=== PATIENT | female | born 1950 | race Caucasian/White ===

== ENCOUNTER 2019-06-19 23:24 | Inpatient (IN) | payer MEDICARE, MEDICAID, SELFPAY ==
[2019-06-19 23:21] VITALS: BP 156/112; PULSE 97; RESP 27; TEMP 36.7; O2SAT 99; BMI 31.9
--- NOTE | 2019-06-19 23:21 | ECG_ITS ---
Measurements Intervals [place] Rate: 99 P: 73 MO: 141 QRS: 57 QRSD: 90 T: 10 QT: 333 QTc: [address] DEPRESSION [0.05+ mV ST DEPRESSION] Compared to ECG 11/01/2018 11:11:24 No significant changes Electronically Signed On 06-20-2019 9:04:35 CDT by Tor Vigil M.D. [id number]
--- NOTE | 2019-06-19 23:21 | XRR_ITS ---
PROCEDURE INFORMATION: Exam: XR Chest, 1 View Exam date and time: 06/19/2019 11:22 PM Age: 68 years old Clinical indication: Shortness of breath; Additional info: SOB TECHNIQUE: Imaging protocol: XR of the chest Views: 1 view. COMPARISON: CR Chest 1 [place] [id number] 11/01/2018 11:40 AM FINDINGS: Lungs: Stable coarsening of interstitial markings. No pulmonary parenchymal consolidation. Pleural space: Unremarkable. No pleural effusion. No pneumothorax. Heart/Mediastinum: Hiatal hernia is suggested. Heart is borderline prominent and stable. Bones/joints: Unremarkable. XR/XR chest 1V portable [id number] IMPRESSION: No acute change
--- NOTE | 2019-06-19 23:27 | ED_ITS ---
Entered by Meche Francis, acting as scribe for HPI - SOB/Dyspnea General: Chief Complaint: Shortness of Breath/Dyspnea Stated Complaint: SOB Time Seen by Provider: 06/19/19 23:28 Source: patient and EMS Mode of arrival: EMS Limitations: no limitations History of Present Illness: HPI Narrative: 68 yo f came to the er [facility] for shortness of breath. 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 Ems stated that pt is normally on o2 at home but pt was on 5 ltrs with her o2 being at 60%. Ems gave pt [address] to the hospital. 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) Timing: constant Severity: moderate Relieving factors: oxygen Associated symptoms: Deny abdominal pain, chest pain, fever(s), nausea or vomiting Treatment prior to arrival: oxygen and other (cpap and 40 of lasiks) Related Data: Home oxygen amount: 3 liters Review of Systems General: Reports: other (negative unless marked) Const: Denies: fever, chills, body aches or change in appetite Eyes: Denies: blurry vision or eye discomfort ENMT: Denies: throat pain or dental pain Card: Denies: chest pain Resp: Reports: shortness of breath GI: Denies: abdominal pain, nausea, vomiting or diarrhea : Denies: painful urination Musc: Denies: neck pain or back pain Skin/Breast: Denies: rash Neuro: Denies: headache Psych: Denies: depression David/Lymph: Denies: easy bruising All/Imm: Denies: hives PFS ED PFSH: Social History Smoking and tobacco status: former smoker Physical Exam Const: COMMON NORMALS: oriented x3 GENERAL APPEARANCE: in distress and ill appearing HENMT: COMMON NORMALS: normocephalic and head/scalp atraumatic HEAD & SCALP: normocephalic and atraumatic Eye: COMMON NORMALS: PERRL and EOMs intact bilaterally PUPIL: Yes PERRL Neck/C-Spine: COMMON NORMALS: full ROM and supple Chest: COMMONS NORMALS: inspection of chest normal and palpation of chest no rmal Resp: COMMON NORMALS: no retractions EFFORT & INSPECTION: Yes tachypneic, Yes respiratory distress and Yes labored AUSCULTATION: wheezes Cardio: COMMON NORMALS: regular rate, regular rhythm and no murmurs RATE: regular rate RHYTHM: regular rhythm GI: COMMON NORMALS: normal to inspection, nondistended, normoactive bowel sounds, soft to palpation, non-tender and no masses PALPATION: Yes soft Extremity: COMMON NORMALS: normal to inspection and full ROM Neuro: COMMON NORMALS: oriented x3, moves all extremities and no focal motor deficits Psych: COMMON NORMALS: mental status grossly normal, thought process normal and cooperative THOUGHT PROCESS: normal thought process Skin: COMMON NORMALS: no rashes or lesions noted and no wounds GENERAL SKIN EXAM: no rashes or lesions noted Course Vital Signs: Vital signs: Vital Signs Temperature 98.1 F 06/19/19 23:21 Pulse Rate 100 06/19/19 23:44 Respiratory Rate 24 H 06/19/19 23:33 Blood Pressure 156/112 06/19/19 23:33 Pulse Oximetry 98 06/19/19 23:33 MDM - SOB/Dyspnea MDM Narrative: Medical decision making narrative: Patient presents here with dyspnea is likely CHF exacerbation. Patient was in quite a bit distressed when she first arrived but is now much improved on BiPAP. She is tolerating BiPAP well. She has no signs of pneumonia. Patient given breathing treatments as well. I spoke to hospitalist will admit to the cardiac stepdown. Patient has no signs of cardiac cause or pulmonary embolism. Lab Data: Labs: Lab Results 06/19/19 06/19/19 06/19/19 Range/Units 23:30 23:30 23:30 WBC 11.3 H (4.0-10.0) 10^3/ uL RBC 3.50 L (4.1-5.3) 10^6/u L Hgb 10.8 L (11.5-15.3) g/dL Hct 34.2 L (37.0-47.0) % MCV 97.7 (81-99) fL MCH 30.9 (28.0-34.0) pg MCHC 31.6 (30.0-36.0) g/dL RDW 14.6 (12.1-15.1) % Plt Count 356 (130-400) 10^3/c mm MPV 9.5 (7.4-10.4) fL Neut % (Auto) 85.7 % Lymph % (Auto) 10.2 % Rooks % (Auto) 3.3 % Eos % (Auto) 0.0 % Baso % (Auto) 0.1 % Neut # (Auto) 9.7 H (1.8-7.7) 10^3/u L Lymph # (Auto) 1.2 (0.8-4.8) 10^3/u L Rooks # (Auto) 0.4 (0.2-0.9) 10^3/u L Eos # (Auto) 0.0 (0.0-0.8) 10^3/u L Baso # (Auto) 0.0 (0.0-0.1) 10^3/u L Nucleated RBC % (a uto) 0 % Nucleated RBCs # 0.0 /100WBC Specimen Type Sample Site ABG pH (7.35-7.45) ABG pCO2 (35-45) mmHg ABG pO2 (80.0-100.0) mmH g ABG HCO3 (22-26) mmol/L ABG Base Excess (-2.0-2.0) mmol/ L Sergo Test Hematocrit (37-47) % Hgb O2 Saturation (95-100) % Carboxyhemoglobin (0.4-20.1) %THgb Methemoglobin (0.4-1.5) % Total Hemoglobin (12-16) g/dL O2 Delivery Device FiO2 % Fighting Vehicle Systems Maintainer ID Sodium 142 (136-145) mmol/L Potassium 4.4 (3.5-5.1) mmol/L Chloride 101 (98-107) mmol/L Carbon Dioxide 28 (22-29) mmol/L Anion Gap 17.4 (5-19) BUN 17 (8-23) mg/dL Creatinine 1.0 H (0.5-0.9) mg/dL GFR Calculation 54.8 L (90-130) mL/min Glucose 132 H (65-115) mg/dL Calculated Osmolal ity 292 (285-295) mOsm/k g Calcium 10.1 (8.5-10.5) mg/dL Total Bilirubin 0.2 (0.15-1.2) mg/dL AST 58 H (0-32) U/L ALT 38 H (0-33) U/L Alkaline Phosphata se 77 (35-105) IU/L Troponin T Baselin e (0-10) ng/mL NT-Pro-B Natriuret Pep 1697 H (0-125) pg/mL Total Protein 7.8 (6.6-8.7) g/dL Albumin 4.5 (3.5-5.2) g/dL Globulin 3.3 (1.3-4.6) g/dL Influenza Type A A g Negative (Negative) POC Influenza B Ag Negative (Negative) 06/19/19 06/19/19 Range/Units 23:30 23:41 WBC (4.0-10.0) 10^3/ uL RBC (4.1-5.3) 10^6/u L Hgb (11.5-15.3) g/dL Hct (37.0-47.0) % MCV (81-99) fL MCH (28.0-34.0) pg MCHC (30.0-36.0) g/dL RDW (12.1-15.1) % Plt Count (130-400) 10^3/c mm MPV (7.4-10.4) fL Neut % (Auto) % Lymph % (Auto) % Rooks % (Auto) % Eos % (Auto) % Baso % (Auto) % Neut # (Auto) (1.8-7.7) 10^3/u L Lymph # (Auto) (0.8-4.8) 10^3/u L Rooks # (Auto) (0.2-0.9) 10^3/u L Eos # (Auto) (0.0-0.8) 10^3/u L Baso # (Auto) (0.0-0.1) 10^3/u L Nucleated RBC % (a uto) % Nucleated RBCs # /100WBC Specimen Type Arterial Sample Site Radial, right ABG pH 7.42 (7.35-7.45) ABG pCO2 41.2 (35-45) mmHg ABG pO2 118.0 H (80.0-100.0) mmH g ABG HCO3 26.8 H (22-26) mmol/L ABG Base Excess 2.1 H (-2.0-2.0) mmol/ L Sergo Test Pos Hematocrit 34.8 L (37-47) % Hgb O2 Saturation 98.5 (95-100) % Carboxyhemoglobin 0.4 (0.4-20.1) %THgb Methemoglobin 0.0 L (0.4-1.5) % Total Hemoglobin 11.3 L (12-16) g/dL O2 Delivery Device Bipap FiO2 35.0 % Fighting Vehicle Systems Maintainer ID [email or web address] Sodium (136-145) mmol/L Potassium (3.5-5.1) mmol/L Chloride (98-107) mmol/L Carbon Dioxide (22-29) mmol/L Anion Gap (5-19) BUN (8-23) mg/dL Creatinine (0.5-0.9) mg/dL GFR Calculation (90-130) mL/min Glucose (65-115) mg/dL Calculated Osmolal ity (285-295) mOsm/k g Calcium (8.5-10.5) mg/dL Total Bilirubin (0.15-1.2) mg/dL AST (0-32) U/L ALT (0-33) U/L Alkaline Phosphata se (35-105) IU/L Troponin T Baselin e 17 H (0-10) ng/mL NT-Pro-B Natriuret Pep (0-125) pg/mL Total Protein (6.6-8.7) g/dL Albumin (3.5-5.2) g/dL Globulin (1.3-4.6) g/dL Influenza Type A A g (Negative) POC Influenza B Ag (Negative) Imaging Data^: CXR: Radiologist's impression: [address] [address] XRay Report Signed Patient: Jose Amaya Unit #: [id number] : 1950 Age/Sex: 68 / F ADM Date: 06/19/19 Loc: ER Room/Bed: Attending Dr: Ordering Provider/Ordering MD: Srinath Alaniz MD Date of Service: 06/19/19 Procedure(s): XR chest 1V portable [id number] Accession Number(s): [id number] Report Number: [id number] PROCEDURE INFORMATION: Exam: XR Chest, 1 View Exam date and time: 06/19/2019 11:22 PM Age: 68 years old Clinical indication: Shortness of breath; Additional info: SOB TECHNIQUE: Imaging protocol: XR of the chest Views: 1 view. COMPARISON: CR Chest 1 [place] [id number] 11/01/2018 11:40 AM FINDINGS: Lungs: Stable coarsening of interstitial markings. No pulmonary parenchymal consolidation. Pleural space: Unremarkable. No pleural effusion. No pneumothorax. Heart/Mediastinum: Hiatal hernia is suggested. Heart is borderline prominent and stable. Bones/joints: Unremarkable. XR/XR chest 1V portable [id number] IMPRESSION: No acute change EKG Data^: EKG 1: Attestation: I personally reviewed and interpreted this EKG as follows: EKG Interpretation Date: 06/20/19 EKG interpretation time: 23:47 Interpretation: nsr hr [address] or t wave abnormalities qrs 90 qtc 389 Discharge Plan Discharge Patient Disposition: Admitted As Inpatient Clinical Impression: Acute exacerbation of chronic obstructive airways disease Congestive heart failure Qualifiers: Heart failure type: unspecified Heart failure chronicity: acute on chronic Qualified Code(s): I50.9 - Heart failure, unspecified Condition: Stable Referrals: Harriet Driver NP [Family Provider] - Coding Level of Care Code ED Leaflet Or Newspaper Deliverer for Chg Fwd Exam Comprehensive The documentation recorded by the Tito kerns Stephanie Lyn, accurately reflects the service I personally performed and the decisions made by Katty oates Korby, MD Jun 19, 2019 23:24
[2019-06-19 23:28] VITALS: PULSE 89; RESP 26; O2SAT 98
[2019-06-19] MEDS: ipratropium-albuterol 3 mL Neb INHALATION (23:30)
[2019-06-19 23:32] VITALS: PULSE 99; RESP 24; O2SAT 98
[2019-06-19 23:33] VITALS: BP 156/112; PULSE 99; RESP 24; O2SAT 98
[2019-06-19 23:41] LABS: Basophils % 0.1 %; Hematocrit 34.2 % (37.0-47.0); Hemoglobin 10.8 g/dL (11.5-15.3); Lymphocytes # 1.2 10^3/uL (0.8-4.8); Lymphocytes % 10.2 %; Mean Corpuscular HGB Conc 31.6 g/dL (30.0-36.0); Mean Corpuscular Hemoglobin 30.9 pg (28.0-34.0); Mean Corpuscular Volume 97.7 fL (81-99); Mean Platelet Volume 9.5 fL (7.4-10.4); Monocytes # 0.4 10^3/uL (0.2-0.9); Monocytes % 3.3 %; Neutrophils # 9.7 10^3/uL (1.8-7.7); Neutrophils % 85.7 %; Nucleated Red Blood Cells % 0 %; Platelet Count 356 10^3/cmm (130-400); Red Cell Distribution Width 14.6 % (12.1-15.1); White Blood Count 11.3 10^3/uL (4.0-10.0)
[2019-06-19 23:42] LABS: ABG PCO2 41.2 mmHg (35-45); ABG PH Result 7.42 (7.35-7.45); Arterial Blood Gas Hematocrit 34.8 % (37-47); Base Excess ABG 2.1 mmol/L (-2.0-2.0); Blood Gas Allen Test Pos; Blood Gas Sample Site Radial, right; Blood Gas Sample Type Arterial; Carboxyhemoglobin 0.4 %THgb (0.4-20.1); HCO3 ABG 26.8 mmol/L (22-26); HGB O2 Sat 98.5 % (95-100); Oxygen Device BIPAP; Total Hemoglobin 11.3 g/dL (12-16)
[2019-06-19 23:44] VITALS: PULSE 100
[2019-06-20] VITALS (13 sets, daily range): BP systolic 111–154; BP diastolic 63–93; PULSE 81–112; RESP 16–27; TEMP 36.7–36.9; O2SAT 94–99
[2019-06-20 00:03] LABS: Influenza A by IFA Negative (Negative); Influenza B by IFA Negative (Negative)
[2019-06-20 00:07] LABS: Alanine Aminotransferase 38 U/L (0-33); Albumin Level 4.5 g/dL (3.5-5.2); Alkaline Phosphatase 77 IU/L (35-105); Anion Gap 17.4 (5-19); Aspartate Amino Transferase 58 U/L (0-32); Blood Urea Nitrogen 17 mg/dL (8-23); Calcium 10.1 mg/dL (8.5-10.5); Carbon Dioxide 28 mmol/L (22-29); Chloride 101 mmol/L (98-107); Globulin 3.3 g/dL (1.3-4.6); Glomerular Filtration Rate 54.8 mL/min (90-130); Glucose 132 mg/dL (65-115); NT Pro B Type Natriuretic Pept 1697 pg/mL (0-125); Osmolality Calculated 292 mOsm/kg (285-295); Potassium 4.4 mmol/L (3.5-5.1); Sodium 142 mmol/L (136-145); Total Bilirubin 0.2 mg/dL (0.15-1.2); Total Protein 7.8 g/dL (6.6-8.7)
[2019-06-20 00:34] LABS: Troponin(5th) Baseline 17 ng/mL (0-10)
[2019-06-20] MEDS: FUROsemide 10 mg/mL SDV 4mL 40 MG IVP ×3 (00:36→19:59)
[2019-06-20] MEDS: cefTRIAXone 1,000 MG in sodium chloride 0.9% (plus) 50 ML 100 MG IV (00:40)
--- NOTE | 2019-06-20 00:50 | CTR_ITS ---
PROCEDURE INFORMATION: Exam: CT Angiography Chest With Contrast Exam date and time: 06/20/2019 12:59 AM Age: 68 years old Clinical indication: Shortness of breath; Additional info: Hypoxic and tachycardic TECHNIQUE: Imaging protocol: Computed tomographic angiography of the chest with intravenous contrast. 3D rendering: MIP and/or 3D reconstructed images were created by the technologist. Total DLP: 624.31 mGy-cm Radiation optimization: All CT scans at this facility use at least one of these dose optimization techniques: automated exposure control; mA and/or kV adjustment per patient size (includes targeted exams where dose is matched to clinical indication); or iterative reconstruction. Contrast material: VISI; Contrast volume: 95 ml; Contrast route: 20G; COMPARISON: CTA Chest-Pulmonary Emb [id number] 12/24/2016 11:42 AM FINDINGS: Pulmonary arteries: Normal. No pulmonary emboli. Aorta: Aortic calcifications. No acute aortic findings. Lungs: Relatively advanced emphysema noted. Pleural space: Unremarkable. No pneumothorax. No pleural effusion. Heart: Coronary calcifications. Mediastinum: Hiatal hernia unchanged. Lobulated soft tissue mass at upper left pulmonary hilum measuring 3.2 cm superior inferior by approximately 2.3 cm transverse by 3.1 cm AP likely represents bronchogenic carcinoma. Finding appears centered in the upper lobe but crosses the oblique fissure to involve the anterior aspect of superior segment left lower lobe. Finding compresses bronchi to left upper lobe and partially encases left main pulmonary artery. Calcified pulmonary granulomatous changes are also noted. Lymph nodes: Unremarkable. No enlarged lymph nodes. Bones/joints: Multilevel spinal compression deformities. Subtle anterior rib fracture deformities possibly acute especially at anterior 5th rib with possible additional findings at anterior 6th and 4th ribs. Soft tissues: Unremarkable. 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 Advanced emphysema. No findings of pulmonary embolus. Nondisplaced rib fractures that may be acute anteriorly on the right. Additional details as above. Radiation Dose CTDIVOL = (mGy): DLP = 624.31 (mGy-cm)
[2019-06-20] MEDS: azithromycin 500 MG in sodium chloride 0.9% 250 ML 250 MG IV (01:18)
[2019-06-20 01:35] LABS: Troponin 5 2HR 17.01 ng/mL (0-10); Troponin 5 2HR Delta 0.01 ABS# (0-10)
--- NOTE | 2019-06-20 01:36 | USCV_ITS ---
Jose Amaya Age: 68 Gender: F : 1950 Exam Date: 06/20/2019 06:23 Ordering Phys: Kan Rubi MD Technologist: Donato Morgan Exam Location: [facility] [place] Indication: CHF BP: 0 / 93 HR: 93 Rhythm: Other Technical Quality: Technically difficult study MEASUREMENTS (Male / Female) Normal Values 2D ECHO LV Diastolic Diameter PLAX 4.3 cm 4.2 - 5.9 / 3.9 - 5.3 cm LV Systolic Diameter PLAX 2.6 cm IVS Diastolic Thickness 0.9 cm 0.6 - 1.0 / 0.6 - 0.9 cm IVS Systolic Thickness 0.9 cm LVPW Diastolic Thickness 1.0 cm 0.6 - 1.0 / 0.6 - 0.9 cm LVPW Systolic Thickness 1.1 cm LVOT Diameter 2.1 cm LV Ejection Fraction 2D Teich 69.4 % LV Ejection Fraction MOD 2C 70.7 % LV Ejection Fraction 2C AL 70.6 % LA Diameter 4.6 cm LA Width 3.8 cm LA Height 5.3 cm RA Width 3.0 cm RA Height 4.5 cm Aorta at Sinotubular Diameter 2.8 cm M-MODE LV Diastolic Diameter MM 5.6 cm 4.2 - 5.9 / 3.9 - 5.3 cm LV Systolic Diameter MM 4.0 cm LV Ejection Fraction MM Teich 53.4 % IVS Diastolic Thickness MM 0.9 cm 0.6 - 1.0 / 0.6 - 0.9 cm IVS Systolic Thickness MM 1.3 cm LVPW Diastolic Thickness MM 1.1 cm 0.6 - 1.0 / 0.6 - 0.9 cm LVPW Systolic Thickness MM 1.5 cm RV Diastolic Diameter MM 1.8 cm Aortic Annulus Diameter 2.8 cm LA Ao Ratio MM 1.7 MV E Point Septal Separation 1.2 cm DOPPLER AV Peak Velocity 146.0 cm/s LVOT Peak Velocity 118.0 cm/s AV Area Cont Eq vti 2.9 cm squared AV Area Cont Eq pk 2.7 cm squared MV Area PHT 5.0 cm squared Mitral E to A Ratio 1.1 MV E' Velocity 9.0 cm/s Mitral E to MV E' Ratio 12.7 Mitral E to LV E' Lateral Ratio 11.8 Mitral E to LV E' Septal Ratio 13.8 TR Peak Velocity 184.0 cm/s TR Peak Gradient 13.6 mmHg TV Peak E Velocity 79.0 cm/s Right Atrial Pressure 3.0 mmHg Pulmonary Artery Systolic Pressu 16.5 mmHg FINDINGS Left Ventricle The rhythm is irregular with tachycardia so the sensitivity is reduced. This is a poor quality study. The ventricle is probably normal in size and function though only limited views are available. The ejection fraction is likely within normal limits. Unable to assess wall motion disturbances or diastolic function. Right Ventricle Right ventricle not well visualized. Normal right ventricular size and systolic function. Normal right ventricular systolic pressure. Right Atrium The right atrium is normal in size. Left Atrium Mildly increased left atrial size. Mitral Valve Mitral valve not well visualized. Trace mitral valve regurgitation. Aortic Valve Aortic valve not well visualized. No aortic valve stenosis. Tricuspid Valve Tricuspid valve not well visualized. Pulmonic Valve Pulmonic valve not well visualized. Pericardium Normal pericardium without effusion. Aorta Normal ascending aorta dimension. CONCLUSIONS The rhythm is irregular with tachycardia so the sensitivity is reduced. This is a poor quality study. The ventricle is probably normal in size and function though only limited views are available. The ejection fraction is likely within normal limits. Unable to assess wall motion disturbances or diastolic function. Mildly increased left atrial size. Mitral valve not well visualized. Trace mitral valve regurgitation. No change from 02/26/2017 Dr. Tor Vigil MD (Electronically Signed) Final Date: 20 June 2019 08:58 S
--- NOTE | 2019-06-20 01:59 | P.HP_ITS ---
Providers/Chief Complaint Chief Complaint: SOB History of Present Illness Jose Amaya is a 68 year old female with end-stage COPD, 5 L [id number] oxygen dependent, peripheral vascular disease, stress test in 2010 showed EF 57%, experienced shortness of breath/bronchospasm, no history of VT or coronary artery disease presented with chief complaint of choking sensation. Patient is stating that she was in her usual state of health i.e. she uses 5 L of oxygen [id number], experiences nonproductive cough, not very mobile and physically active because of oxygen requirement, leading a sedentary lifestyle, since [place] has been experiencing runny nose, runny eyes got 4 different antibiotics and last 3 months until yesterday when she went to her doctor. she took her first dose of doxycycline and started having choking sensation hence she decided to come to ER for further evaluation, when EMS arrived, she was hypoxic 60% on her regular 5 L oxygen, she was sinus tachycardic heart rate 110, blood pressure was stable. She is denying, chest pain, nausea, vomiting, dysuria but is endorsing orthopnea, PND, bilateral leg swelling, limitation to her physical activity b ecause of exertional shortness of breath. She has been taking Lasix 40 mg twice a day. Diagnostic work-up shows normal electrolytes, sinus rhythm EKG, respiratory distress, normal ABG, she was put on BiPAP to decrease her work of breathing, I requested CTA, I will give her first dose of Lovenox full dose therapeutic, flu panel negative Review of Systems Const: Reports: chills, body aches, fatigue and malaise; Denies: fever Eyes: Denies: change in vision ENMT: Denies: throat pain Card: Denies: chest pain Resp: Reports: shortness of breath and non-productive cough GI: Denies: abdominal pain, nausea, coffee grounds in vomit or heartburn/indigestion : Denies: flank pain or difficulty urinating Musc: Denies: neck pain Skin/Breast: Denies: rash Neuro: Denies: headache Psych: Denies: anxiety Endo: Denies: excessive urination David/Lymph: Denies: easy bruising All/Imm: Denies: hives PFSH Acute PFSH: Medical History (Updated 06/20/19 @ 01:53 by Kan Rubi MD) COPD (chronic obstructive pulmonary disease) Dyslipidemia End stage COPD GERD (gastroesophageal reflux disease) Hypertension Hypothyroidism Iron deficiency anemia Oxygen dependent Peripheral vascular disease Stenosis of lower extremity artery Status post stent in left lower extremity Surgical History (Updated 06/20/19 @ 01:08 by Kan Rubi MD) Hx of tonsillectomy Family History (Updated 06/20/19 @ 01:08 by Kan Rubi MD) Mother CAD (coronary artery disease) Social History (Updated 06/20/19 @ 01:09 by Kan Rubi MD) Smoking and tobacco status: former smoker Alcohol intake: never Substance/Drug Use: never Housing: House Vitals/I&O/Wt Last Vital Signs Temp 98.1 F 06/19/19 23:21 Pulse 100 06/19/19 23:44 Resp 24 H 06/19/19 23:33 BP 156/112 06/19/19 23:33 Pulse Ox 98 06/19/19 23:33 Weight last 48 hrs Weight 95.254 kg Physical Exam Narrative: EXAM NARRATIVE: This is a pleasant elderly female Appropriate grooming Currently breathing well on BiPAP, no active respiratory distress She has expiratory wheezing to mild extent bilaterally No lymphadenopathy of anterior posterior cervical lymph nodes No active rhinorrhea or eye discharge S1, S2 sinus rhythm on telemetry, hard to assess her JVD however bilateral lower extremity edema 1+ Abdomen soft, nontender, nondistended, bowel sounds present Awake alert oriented x3, GCS 15 Skin does not show any sign ischemia gangrene or ulcer Pedal and ankle edema positive Data : 06/19/19 23:30 06/19/19 23:30 A&P Assessment and plan (1) Congestive heart failure: Status: Acute Qualifiers: Heart failure chronicity: acute on chronic Heart failure type: unsp ecified Qualified Code(s): I50.9 - Heart failure, unspecified Code(s): I50.9 - Heart failure, unspecified (2) Hypoxia: Status: Acute Code(s): R09.02 - Hypoxemia Additional A&P Information Acute on chronic hypoxic respiratory failure with underlying end-stage COPD No active pneumonia seen on x-ray, no severe exacerbation of heart failure seen as well however clinically she has symptoms of right-sided heart failure I would rule out PE, will get CTA chest I will give her 1 dose of Lovenox for therapeutic Would discontinue antibiotics, she has received ceftriaxone and azithromycin in the ER Currently doing well on BiPAP settings 24/11 Acute congestive heart failure exacerbation Previous echo shows preserved ejection fraction 57% With her end-stage COPD she is high risk for pulmonary hypertension and right- sided heart failure High BNP, clinical signs of heart failure positive, I would use IV Lasix instead of p.o. and monitor her output Echo in the morning Hyperthyroidism: Continue methimazole 5 mg daily, check TSH Peripheral arterial disease with stenting left leg: I would add aspirin along statin Iron deficiency anemia history: Hemoglobin stable at 10 Patient is full code, wants a trial of CPR and intubation but would not agree for prolonged resuscitative measures Cardiac diet Attestations Medical Necessity Statement*: Anticipating discharge less than 48 hours, needs echo for her new onset heart failure and needs to rule out PE Time Spent in Patient Care: 45 Coding Level of Care Code Acute Parts Technician for Neo Anderson Diagnoses Congestive heart failure I50.9 Heart failure chronicity: acute on chronic Heart failure type: unspecified Hypoxia R09.02
[2019-06-20] MEDS: iodixanol 320 mg/mL 100mL Btl IV (02:13)
[2019-06-20 03:09] LABS: Magnesium 1.4 mg/dL (1.7-2.3); Thyroid Stimulating Hormone 0.48 uIU/mL (0.27-4.20)
[2019-06-20] MEDS: enoxaparin 100 mg/mL Syringe SUBCUT (03:37)
[2019-06-20 04:06] LABS: Hemoglobin 10.8 g/dL (11.5-15.3); Lymphocytes # 1.1 10^3/uL (0.8-4.8); Mean Corpuscular HGB Conc 31.8 g/dL (30.0-36.0); Mean Corpuscular Hemoglobin 31.6 pg (28.0-34.0); Mean Corpuscular Volume 99.4 fL (81-99); Mean Platelet Volume 9.9 fL (7.4-10.4); Monocytes # 0.1 10^3/uL (0.2-0.9); Monocytes % 1.2 %; Neutrophils # 7.9 10^3/uL (1.8-7.7); Neutrophils % 85.8 %; Nucleated Red Blood Cells % 0 %; Platelet Count 325 10^3/cmm (130-400); Red Blood Count 3.42 10^6/uL (4.1-5.3); Red Cell Distribution Width 14.5 % (12.1-15.1); White Blood Count 9.3 10^3/uL (4.0-10.0)
[2019-06-20 04:28] LABS: Anion Gap 18.7 (5-19); Blood Urea Nitrogen 18 mg/dL (8-23); Calcium 9.8 mg/dL (8.5-10.5); Carbon Dioxide 26 mmol/L (22-29); Chloride 101 mmol/L (98-107); Glomerular Filtration Rate 54.8 mL/min (90-130); Glucose 181 mg/dL (65-115); Osmolality Calculated 295 mOsm/kg (285-295); Potassium 3.7 mmol/L (3.5-5.1); Sodium 142 mmol/L (136-145)
--- NOTE | 2019-06-20 05:58 | ECG_ITS ---
Measurements Intervals [place] Rate: 98 P: 81 GA: 140 QRS: 45 QRSD: 94 T: 37 QT: 349 QTc: 446 SINUS RHYTHM WITH OCCASIONAL VENTRICULAR PREMATURE COMPLEXES WITH OCCASIONAL SUPRAVENTRICULAR PREMATURE COMPLEXES MODERATE ST DEPRESSION [0.05+ mV ST DEPRESSION] Compared to ECG 11/01/2018 11:11:24 Ventricular premature complex(es) now present ST (T wave) deviation still present Electronically Signed On 06-20-2019 9:07:32 CDT by Tor Vigil M.D. [email or web address]
[2019-06-20 06:48] LABS: Troponin 5 6HR 16.11 ng/mL (0-10); Troponin 5 6HR Delta -0.89 ng/L (0-12)
[2019-06-20] MEDS: aspirin 81 mg EC Tablet PO (10:27)
[2019-06-20] MEDS: methIMAzole 5 MG Tablet PO (10:28)
[2019-06-20] MEDS: lisinopril 10 mg Tablet PO (10:28)
[2019-06-20] MEDS: predniSONE 20 mg Tablet 40 MG PO (10:29)
--- NOTE | 2019-06-20 10:35 | PC.CHAP ---
Pastoral Care Encounter/Spiritual Assessment Type of Contact [] Declined freight manager visit [] Patient/Family/Request visit [] Outpatient visit [] Follow-up visit [] Physician referral [] Code/Alert [x] Routine visit [] Staff referral [] Actively dying [] Patient sleeping [x] Family support [] [] Out of room [] Palliative care [] [] Receiving care in room [] Pre-surgical visit [] Trauma [] Long length of stay [] ICU visit [] Other: Relational/Emotional Strength [] Patient feels connected with others/family/visitors/staff [] Distress [] Loneliness/isolation [] Abandonment Spirituality of Patient [] Person of Eleanor [] Attends Zoroastrian of their Eleanor [x] Believes in Prayer [] Reads Bible or Holiness materials [] There are Spiritual issues to be addressed Pest Technician Interventions [x] Prayer [] Active listening [] Non-anxious presence [] Spiritual/emotional support [] Crisis/trauma care [] Spiritual counseling [] Bereavement support [] Provided bereavement packet [] Provided Bible/devotional materials [] Provided toy/stuffed animal, coloring book to patient or family member [] Provided Communion [] Anointing/Babylon [] Salvation [x] Completed spiritual assessment [] Other: Impact on Illness or Injury [] Angry [] Fearful [] Anxious [] Often cries [] Exhaustion [] Unable to work [] Unable to attend yarsanism [] Unable to walk/stand [] Unable to read [] Unable to drive [] Unable to eat/drink [] Unable to sleep [] Unable to be with family [] Patient intubated [] Other: Summary Patients sons present. Patient not excited about breather mask, but learning to deal with it. Time spent with patient 15 min
[2019-06-20] MEDS: metoprolol tartrate 25 mg Tablet PO (14:41)
--- NOTE | 2019-06-20 15:25 | PC.RESP ---
Patient given Pulmonary Rehab information.
[2019-06-20] MEDS: magnesium sulfate premix 2 GM/50 ML PIGGYBACK IV (18:17)
[2019-06-20] MEDS: acetaminophen 325 mg Tablet 650 MG PO ×2 (18:17→23:28)
[2019-06-20] MEDS: pantoprazole DR 40 mg Tablet PO (18:17)
[2019-06-20] MEDS: pregabalin 75 mg Capsule PO (18:17)
[2019-06-20] MEDS: ipratropium-albuterol 3 mL Neb INHALATION (19:14)
[2019-06-20] MEDS: duloxetine 20 mg Capsule PO (19:59)
[2019-06-20] MEDS: atorvastatin 40 mg Tablet 20 MG PO (19:59)
--- NOTE | 2019-06-20 20:44 | PM.PN ---
Subjective Subjective: Interval history: She is feeling better, however, getting short of breath with minimal exertion. Tolerating BiPAP. Vitals/I&O/Wt Last Vital Signs Temp 98.1 F 06/20/19 19:48 Pulse 81 06/20/19 19:48 Resp 20 H 06/20/19 19:48 BP 111/74 06/20/19 19:48 Pulse Ox 96 06/20/19 19:48 06/20/19 06/20/19 06/20/19 06:59 14:59 22:59 Intake Total 700 / 700 240 / 240 Output Total 1050 / 1050 800 / 800 200 / 1000 Balance -350 / -350 -560 / -560 -200 / -760 Weight last 48 hrs Weight 95.254 kg Physical Exam Const: COMMON NORMALS: no apparent distress and oriented x3 HENMT: COMMON NORMALS: oropharynx normal Neck/C-Spine: COMMON NORMALS: no JVD Resp: AUSCULTATION: wheezes and diminished lung sounds Cardio: COMMON NORMALS: no JVD, regular rhythm, S1 normal heart sound, S2 normal heart sound and no murmurs RHYTHM: regular rhythm HEART SOUNDS: S1 normal and S2 normal GI: COMMON NORMALS: normal to inspection, nondistended, normoactive bowel sounds, soft to palpation and non-tender PALPATION: Yes soft Extremity: COMMON NORMALS: no joint enlargement GENERAL: Yes edema Neuro: COMMON NORMALS: oriented x3 and moves all extremities Skin: COMMON NORMALS: no rashes or lesions noted GENERAL SKIN EXAM: no rashes or lesions noted Data : 06/20/19 03:34 06/20/19 03:34 A&P Assessment and plan (1) Congestive heart failure: In negative balance. With significant lower extremity edema, orthopnea, dyspnea. Continue diuresis, positive pressure ventilation. Status: Acute Qualifiers: Heart failure chronicity: acute on chronic Heart failure type: unspecified Qualified Code(s): I50.9 - Heart failure, unspecified Code(s): I50.9 - Heart failure, unspecified (2) Hypoxia: Hypoxic respiratory failure. Secondary to COPD exacerbation, CHF exacerbation. 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 Will need to discuss results. Status: Acute Code(s): R09.02 - Hypoxemia (3) Acute exacerbation of chronic obstructive airways disease: Continue steroid, breathing treatments, oxygen support, BiPAP support. No hypercapnia on presentation. Discussed with her and family may benefit from reassessment by sleep study after discharge. Status: Acute Code(s): J44.1 - Chronic obstructive pulmonary disease with (acute) exacerbation Additional A&P Information Hyperthyroidism: Continue methimazole 5 mg daily, TSH low normal Peripheral arterial disease with stenting left leg: aspirin, statin Iron deficiency anemia history: Monitor hemoglobin. Attestations Medical Necessity Statement*: Admission of over 2 midnights is going to be needed for assessment of management of acute respiratory failure, COPD this admission, CHF exacerbation. 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
[2019-06-20] MEDS: capsaicin 0.025% cream 60 gm 1 APPLIC TOPICAL (23:30)
[2019-06-21 04:10] LABS: Basophils % 0.1 %; Hematocrit 30.8 % (37.0-47.0); Hemoglobin 9.5 g/dL (11.5-15.3); Lymphocytes # 3.1 10^3/uL (0.8-4.8); Lymphocytes % 24.5 %; Mean Corpuscular HGB Conc 30.8 g/dL (30.0-36.0); Mean Corpuscular Hemoglobin 30.4 pg (28.0-34.0); Mean Corpuscular Volume 98.7 fL (81-99); Mean Platelet Volume 10.2 fL (7.4-10.4); Monocytes # 1.4 10^3/uL (0.2-0.9); Monocytes % 11.3 %; Neutrophils # 8.1 10^3/uL (1.8-7.7); Neutrophils % 63.7 %; Nucleated Red Blood Cells % 0 %; Platelet Count 324 10^3/cmm (130-400); Red Blood Count 3.12 10^6/uL (4.1-5.3); Red Cell Distribution Width 14.8 % (12.1-15.1); White Blood Count 12.7 10^3/uL (4.0-10.0)
[2019-06-21 04:23] LABS: Alanine Aminotransferase 24 U/L (0-33); Albumin Level 3.7 g/dL (3.5-5.2); Alkaline Phosphatase 57 IU/L (35-105); Anion Gap 16.5 (5-19); Aspartate Amino Transferase 25 U/L (0-32); Blood Urea Nitrogen 30 mg/dL (8-23); Calcium 9.3 mg/dL (8.5-10.5); Carbon Dioxide 31 mmol/L (22-29); Chloride 100 mmol/L (98-107); Globulin 2.9 g/dL (1.3-4.6); Glomerular Filtration Rate 44.4 mL/min (90-130); Glucose 136 mg/dL (65-115); Osmolality Calculated 297 mOsm/kg (285-295); Potassium 3.5 mmol/L (3.5-5.1); Sodium 144 mmol/L (136-145); Total Bilirubin 0.2 mg/dL (0.15-1.2); Total Protein 6.6 g/dL (6.6-8.7)
[2019-06-21 04:45] VITALS: BP 133/74; PULSE 90; RESP 20; TEMP 36.6; O2SAT 97
[2019-06-21 07:56] VITALS: BP 120/68; PULSE 86; RESP 20; O2SAT 99
[2019-06-21] MEDS: pantoprazole DR 40 mg Tablet PO ×2 (09:39→18:23)
[2019-06-21] MEDS: metoprolol tartrate 25 mg Tablet PO ×2 (09:40→18:23)
[2019-06-21] MEDS: pregabalin 75 mg Capsule PO ×2 (09:40→18:23)
[2019-06-21] MEDS: methIMAzole 5 MG Tablet PO (09:40)
[2019-06-21] MEDS: aspirin 81 mg EC Tablet PO (09:40)
[2019-06-21] MEDS: predniSONE 20 mg Tablet 40 MG PO (09:40)
[2019-06-21] MEDS: lisinopril 10 mg Tablet PO (09:40)
[2019-06-21] MEDS: acetaminophen 325 mg Tablet 650 MG PO ×2 (09:41→19:15)
[2019-06-21] MEDS: FUROsemide 10 mg/mL SDV 4mL 40 MG IVP ×2 (09:45→20:09)
[2019-06-21 10:55] VITALS: PULSE 96; RESP 20; O2SAT 97
[2019-06-21 11:04] VITALS: BP 110/61; PULSE 88; RESP 18; O2SAT 97
[2019-06-21] MEDS: capsaicin 0.025% cream 60 gm 1 APPLIC TOPICAL (11:27)
[2019-06-21 16:06] VITALS: BP 111/68; PULSE 88; RESP 30; O2SAT 96
--- NOTE | 2019-06-21 19:29 | P.PN_ITS ---
Subjective Subjective: Interval history: Has been slowly improving. Overnight did not require BiPAP since yesterday evening. Did well on nasal cannula. During the day did get winded while getting around to the commode. Vitals/I&O/Wt Last Vital Signs Temp 97.8 F 06/21/19 04:45 Pulse 88 06/21/19 16:06 Resp 30 H 06/21/19 16:06 BP 111/68 06/21/19 16:06 Pulse Ox 96 06/21/19 16:06 06/21/19 06/21/19 06/21/19 06:59 14:59 22:59 Intake Total 400 / 640 600 / 600 240 / 840 Output Total 800 / 1800 800 / 800 Balance -400 / -1160 600 / 600 -560 / 40 Weight last 48 hrs Weight 103.737 kg Weight 95.254 kg Physical Exam Const: COMMON NORMALS: no apparent distress and oriented x3 HENMT: COMMON NORMALS: oropharynx normal Neck/C-Spine: COMMON NORMALS: no JVD Resp: AUSCULTATION: no wheezes and diminished lung sounds Cardio: COMMON NORMALS: no JVD, regular rhythm, S1 normal heart sound, S2 normal heart sound and no murmurs RHYTHM: regular rhythm HEART SOUNDS: S1 normal and S2 normal GI: COMMON NORMALS: normal to inspection, nondistended, normoactive bowel sounds, soft to palpation and non-tender PALPATION: Yes soft Extremity: COMMON NORMALS: no joint enlargement GENERAL: Yes edema (Showing improvement) Neuro: COMMON NORMALS: oriented x3 and moves all extremities Skin: COMMON NORMALS: no rashes or lesions noted GENERAL SKIN EXAM: no rashes or lesions noted Data : 06/21/19 03:05 06/21/19 03:05 A&P Assessment and plan (1) Congestive heart failure: In negative balance. Gradually improving. Did well without BiPAP since last night. Lower extremity edema is improving. There is some worsening in renal function, creatinine up to 1.2. For now continue Lasix. Monitor I&O. Monitor renal function. Reassess chest x-ray in the morning. With significant lower extremity edema, orthopnea, dyspnea. Continue diuresis, positive pressure ventilation as needed. Status: Acute Qualifiers: Heart failure chronicity: acute on chronic Heart failure type: unspecified Qualified Code(s): I50.9 - Heart failure, unspecified Code(s): I50.9 - Heart failure, unspecified (2) Hypoxia: Improving. Appears to be below her usual oxygen requirement. She is normally on 5 L oxygen at home. Discussed with her and her son that overly high saturation is not desired and may lead to hypercapnia. Target saturation 88- 92%. The verbalized understanding. Hypoxic respiratory failure. Secondary to COPD exacerbation, CHF exacerbation. Lung mass, possible malignancy. Status: Acute Code(s): R09.02 - Hypoxemia (3) Acute exacerbation of chronic obstructive airways disease: Taper down steroid, continue breathing treatments, oxygen support, BiPAP support. No hypercapnia on presentation. Discussed with her and family may benefit from reassessment by sleep study after discharge. 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 Discussed results with her and 1 of her sons was present in the room. On discussion with radiology hilar mass is too deep to try to reach by percutaneous biopsy. On review of imaging with our diversified crops farmworker there is also no nearby located airway which could allow for the mass to be reached safely by bronchoscopic biopsy. PET scan may allow for identification of any metastatic nodes or other lesions which may then be accessible by bronchoscopy. Discussed with her and her son. We also discussed consideration of obtaining CT abdomen pelvis to look for metastatic disease in the abdomen which may be more easily reachable by radiologic biopsy. Considered obtaining CT abdomen pelvis with IV contrast today, however, today she did have some worsening renal function with creatinine rise up to 1.2, with having received contrast with CTA, and currently undergoing diuresis for CHF. Will delay abdomen pelvis CT until renal function can be assessed stable. If no side to can be sampled in abdomen pelvis, refer for PET/CT and outpatient follow-up with pulmonology. Status: Acute Code(s): R91.8 - Other nonspecific abnormal finding of lung field Additional A&P Information Hyperthyroidism: Continue methimazole 5 mg daily, TSH low normal Peripheral arterial disease with stenting left leg: aspirin, statin Iron deficiency anemia history: Monitor hemoglobin. Attestations Medical Necessity Statement*: Continue admission for assessment management of hypoxic respiratory failure, CHF exacerbation, COPD exacerbation, diagnosis of lung mass. Coding Level of Care Code Acute Director [employer] for g Fwd Diagnoses Congestive heart failure I50.9 Heart failure chronicity: acute on chronic Heart failure type: unspecified Hypoxia R09.02 Acute exacerbation of chronic obstructive airways disease J44.1 Lung mass R91.8
[2019-06-21] MEDS: enoxaparin 40 mg/0.4 mL Syringe SUBCUT (20:09)
[2019-06-21] MEDS: duloxetine 20 mg Capsule PO (20:09)
[2019-06-21] MEDS: atorvastatin 40 mg Tablet 20 MG PO (20:09)
[2019-06-21] MEDS: guaiFENesin 600 mg Tablet 1200 MG PO (20:09)
[2019-06-21 21:00] VITALS: BP 135/73; PULSE 77; RESP 18; TEMP 36.6; O2SAT 95
[2019-06-22] VITALS (14 sets, daily range): BP systolic 106–156; BP diastolic 41–80; PULSE 76–96; RESP 13–23; TEMP 36.4–37.1; O2SAT 92–99
[2019-06-22] MEDS: acetaminophen 325 mg Tablet 650 MG PO ×4 (04:12→23:22)
[2019-06-22 04:16] LABS: Basophils % 0.1 %; Hematocrit 32.4 % (37.0-47.0); Hemoglobin 10.2 g/dL (11.5-15.3); Lymphocytes % 27.1 %; Mean Corpuscular HGB Conc 31.5 g/dL (30.0-36.0); Mean Corpuscular Hemoglobin 30.7 pg (28.0-34.0); Mean Corpuscular Volume 97.6 fL (81-99); Mean Platelet Volume 10.1 fL (7.4-10.4); Monocytes # 1.1 10^3/uL (0.2-0.9); Monocytes % 9.5 %; Neutrophils % 62.8 %; Nucleated Red Blood Cells % 0 %; Platelet Count 315 10^3/cmm (130-400); Red Blood Count 3.32 10^6/uL (4.1-5.3); Red Cell Distribution Width 14.4 % (12.1-15.1); White Blood Count 11.1 10^3/uL (4.0-10.0)
[2019-06-22 04:34] LABS: Alanine Aminotransferase 26 U/L (0-33); Albumin Level 3.7 g/dL (3.5-5.2); Alkaline Phosphatase 58 IU/L (35-105); Anion Gap 14.8 (5-19); Aspartate Amino Transferase 24 U/L (0-32); Blood Urea Nitrogen 27 mg/dL (8-23); Calcium 9.1 mg/dL (8.5-10.5); Carbon Dioxide 32 mmol/L (22-29); Chloride 100 mmol/L (98-107); Globulin 3.2 g/dL (1.3-4.6); Glomerular Filtration Rate 54.8 mL/min (90-130); Glucose 104 mg/dL (65-115); Osmolality Calculated 293 mOsm/kg (285-295); Potassium 3.8 mmol/L (3.5-5.1); Sodium 143 mmol/L (136-145); Total Bilirubin 0.3 mg/dL (0.15-1.2); Total Protein 6.9 g/dL (6.6-8.7)
--- NOTE | 2019-06-22 06:00 | XR_ITS ---
WS: [id number] Portable AP upright chest, 06/22/2019 Clinical Data: Hypoxia Comparison: Portable chest, 06/19/2019. Findings: No nodules, masses or effusions are seen. The heart is enlarged. The pulmonary vascularity is not increased. No pneumonia or pneumothorax is seen. The aortic arch and descending aorta show tor tuosity and calcification. Monitor leads are on the chest wall. XR/XR chest 1V portable [id number] Impression: Cardiomegaly and atherosclerosis.
[2019-06-22] MEDS: ipratropium-albuterol 3 mL Neb INHALATION ×4 (08:51→23:33)
[2019-06-22] MEDS: guaiFENesin 600 mg Tablet 1200 MG PO ×2 (08:54→17:46)
[2019-06-22] MEDS: predniSONE 20 mg Tablet 30 MG PO (08:54)
[2019-06-22] MEDS: pregabalin 75 mg Capsule PO ×2 (08:54→17:47)
[2019-06-22] MEDS: metoprolol tartrate 25 mg Tablet PO ×2 (08:55→17:47)
[2019-06-22] MEDS: aspirin 81 mg EC Tablet PO (08:55)
[2019-06-22] MEDS: FUROsemide 10 mg/mL SDV 4mL 40 MG IVP ×2 (08:55→20:46)
[2019-06-22] MEDS: pantoprazole DR 40 mg Tablet PO ×2 (08:55→17:47)
[2019-06-22] MEDS: methIMAzole 5 MG Tablet PO (08:55)
--- NOTE | 2019-06-22 09:50 | PC.CHAP ---
Pastoral Care Encounter/Spiritual Assessment Type of Contact [] Declined manager willow visit [] Patient/Family/Request visit [] Outpatient visit [] Follow-up visit [] Physician referral [] Code/Alert [x] Routine visit [] Staff referral [] Actively dying [] Patient sleeping [x] Family support [] [] Out of room [] Palliative care [] [] Receiving care in room [] Pre-surgical visit [] Trauma [] Long length of stay [] ICU visit [] Other: Relational/Emotional Strength [] Patient feels connected with others/family/visitors/staff [] Distress [] Loneliness/isolation [] Abandonment Spirituality of Patient [] Person of Eleanor [] Attends Mormon of their Eleanor [] Believes in Prayer [] Reads Bible or Yarsani materials [] There are Spiritual issues to be addressed Sports Equipment Racker Interventions [x] Prayer [] Active listening [] Non-anxious presence [] Spiritual/emotional support [] Crisis/trauma care [] Spiritual counseling [] Bereavement support [] Provided bereavement packet [] Provided Bible/devotional materials [] Provided toy/stuffed animal, coloring book to patient or family member [] Provided Communion [] Anointing/[place] [] Salvation [x] Completed spiritual assessment [] Other: Impact on Illness or Injury [] Angry [] Fearful [] Anxious [] Often cries [] Exhaustion [] Unable to work [] Unable to attend baptist [] Unable to walk/stand [] Unable to read [] Unable to drive [] Unable to eat/drink [] Unable to sleep [] Unable to be with family [] Patient intubated [] Other: Summary Patient resting... breathing become stronger. Patient concerned with congestion. Time spent with patient 5 min
[2019-06-22] MEDS: capsaicin 0.025% cream 60 gm 1 APPLIC TOPICAL ×2 (09:59→17:46)
[2019-06-22] MEDS: lisinopril 10 mg Tablet PO (09:59)
--- NOTE | 2019-06-22 13:28 | CT_ITS ---
WS: [id number] CT ABDOMEN PELVIS TECHNIQUE: Contrast-enhanced CT of the abdomen and pelvis with coronal and sagittal reformatted image s. CLINICAL INFORMATION: pulmonary mass, evaluate for metastatic disease COMPARISON: January 09, 2017 DLP: 1369.[address] scans at [facility] use at least one of these dose optimization techniques: automat ed exposure control; mA and/or kV adjustment per patient size (includes targeted exams where dose is matched to clinical indication); or iterative reconstruction. FINDINGS: Liver is normal in appearance. Adrenal glands are normal. Normal portal vein and splenic vein. Normal pancreas. Normal spleen. Moderate esophageal hiatal hernia. Atelectasis in the lung bases. [place] is contracted. Normal caliber abdominal aorta. Normal renal parenchymal enhancement. No hydronephr osis. No upper abdominal lymphadenopathy. No periaortic lymphadenopathy. Sigmoid diverticulosis. Scattered stool in the colon. No evidence of bowel obstruction. No pelvic or inguinal lymphadenopathy. No inguinal lymphadenopathy. CT/CT abdomen pelvis w con* 22018 IMPRESSION: 1. No abdominal or pelvic lymphadenopathy. No evidence of metastatic disease i n the abdomen or pelvis. 2. Normal liver and spleen. 3. Moderate esophageal hiatal hernia. 4. Normal caliber abdominal aorta. 5. Sigmoid diverticulosis.
--- NOTE | 2019-06-22 13:28 | PM.PN ---
Subjective Subjective: Interval history: continues to feel short of breath this morning with minimal exertion. No acute overnight events. 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 Gradually improving. Did well without BiPAP since last night. Lower extremity edema is improving. There is some worsening in renal function, creatinine up to 1.2. For now continue Lasix. Monitor I&O. Monitor renal function. Reassess chest x-ray in the morning. With significant lower extremity edema, orthopnea, dyspnea. Continue diuresis, positive pressure ventilation as needed. Status: Acute Qualifiers: Heart failure chronicity: acute on chronic Heart failure type: unspecified Qualified Code(s): I50.9 - Heart failure, unspecified Code(s): I50.9 - Heart failure, unspecified (2) Hypoxia: Improving. Appears to be below her usual oxygen requirement. She is normally on 5 L oxygen at home. Discussed with her and her son that overly high saturation is not desired and may lead to hypercapnia. Target saturation 88-92%. The verbalized understanding. Hypoxic respiratory failure. Secondary to COPD exacerbation, CHF exacerbation. Lung mass, possible malignancy. Status: Acute Code(s): R09.02 - Hypoxemia (3) Acute exacerbation of chronic obstructive airways disease: Taper down steroid, continue breathing treatments, oxygen support, BiPAP support. No hypercapnia on presentation. Discussed with her and family may benefit from reassessment by sleep study after discharge. 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 Discussed results with her and 1 of her sons was present in the room. On discussion with radiology hilar mass is too deep to try to reach by percutaneous biopsy. On review of imaging with our environmental resource specialist there is also no nearby located airway which could allow for the mass to be reached safely by bronchoscopic biopsy. PET scan may allow for identification of any metastatic nodes or other lesions which may then be accessible by bronchoscopy. Ct abdomen/pelvis today change nebulization to q4h scheduled If no side to can be sampled in abdomen pelvis, refer for PET/CT and outpatient follow-up with pulmonology. Status: Acute Code(s): R91.8 - Other nonspecific abnormal finding of lung field Additional A&P Information Hyperthyroidism: Continue methimazole 5 mg daily, TSH low normal Peripheral arterial disease with stenting left leg: aspirin, statin Iron deficiency anemia history: Monitor hemoglobin. 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
[2019-06-22] MEDS: iodixanol 320 mg/mL 100mL Btl IV (15:31)
[2019-06-22] MEDS: enoxaparin 40 mg/0.4 mL Syringe SUBCUT (20:45)
[2019-06-22] MEDS: atorvastatin 40 mg Tablet 20 MG PO (20:46)
[2019-06-22] MEDS: duloxetine 20 mg Capsule PO (20:46)
[2019-06-23] VITALS (17 sets, daily range): BP systolic 96–148; BP diastolic 45–71; PULSE 81–105; RESP 16–30; TEMP 36.8; O2SAT 85–98
[2019-06-23] MEDS: ipratropium-albuterol 3 mL Neb INHALATION ×6 (03:35→23:30)
[2019-06-23 04:12] LABS: Basophils % 0.1 %; Eosinophils % 0.2 %; Hematocrit 30.6 % (37.0-47.0); Hemoglobin 9.8 g/dL (11.5-15.3); Lymphocytes # 3.4 10^3/uL (0.8-4.8); Mean Corpuscular Hemoglobin 31.7 pg (28.0-34.0); Mean Platelet Volume 9.7 fL (7.4-10.4); Monocytes # 1.1 10^3/uL (0.2-0.9); Monocytes % 9.4 %; Neutrophils # 7.5 10^3/uL (1.8-7.7); Neutrophils % 61.9 %; Nucleated Red Blood Cells % 0 %; Platelet Count 286 10^3/cmm (130-400); Red Blood Count 3.09 10^6/uL (4.1-5.3); Red Cell Distribution Width 14.2 % (12.1-15.1); White Blood Count 12.1 10^3/uL (4.0-10.0)
[2019-06-23 04:54] LABS: Alanine Aminotransferase 25 U/L (0-33); Albumin Level 3.5 g/dL (3.5-5.2); Alkaline Phosphatase 54 IU/L (35-105); Anion Gap 10.4 (5-19); Aspartate Amino Transferase 18 U/L (0-32); Blood Urea Nitrogen 26 mg/dL (8-23); Calcium 9.1 mg/dL (8.5-10.5); Carbon Dioxide 36 mmol/L (22-29); Chloride 99 mmol/L (98-107); Glomerular Filtration Rate 54.8 mL/min (90-130); Glucose 101 mg/dL (65-115); Osmolality Calculated 291 mOsm/kg (285-295); Potassium 3.4 mmol/L (3.5-5.1); Sodium 142 mmol/L (136-145); Total Bilirubin 0.3 mg/dL (0.15-1.2); Total Protein 6.5 g/dL (6.6-8.7)
--- NOTE | 2019-06-23 09:13 | DCPLANNER ---
Pg 2 of IM updated and reviewed with pt. No questions, copy provided.
[2019-06-23] MEDS: lisinopril 10 mg Tablet PO (09:26)
[2019-06-23] MEDS: acetaminophen 325 mg Tablet 650 MG PO ×2 (09:27→20:21)
[2019-06-23] MEDS: predniSONE 20 mg Tablet 30 MG PO (09:28)
[2019-06-23] MEDS: methIMAzole 5 MG Tablet PO (09:28)
[2019-06-23] MEDS: metoprolol tartrate 25 mg Tablet PO ×2 (09:28→17:47)
[2019-06-23] MEDS: aspirin 81 mg EC Tablet PO (09:28)
[2019-06-23] MEDS: pantoprazole DR 40 mg Tablet PO ×2 (09:29→17:47)
[2019-06-23] MEDS: guaiFENesin 600 mg Tablet 1200 MG PO ×2 (09:29→17:47)
[2019-06-23] MEDS: pregabalin 75 mg Capsule PO ×2 (09:33→17:47)
[2019-06-23] MEDS: FUROsemide 40 mg Tablet PO ×2 (14:30→16:40)
--- NOTE | 2019-06-23 17:40 | P.PN_ITS ---
Subjective Subjective: Interval history: Improving shortness of breath today, however reports 02 saturation dropping to low 80s with minimal exertion to bathroom today. Feels that she is closely approaching her baseline. No acute overnight events. S/p CT abdomen and pelvis yesterdaywhich did not show any evidence of malignant lesions. 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: no focal neuro deficits Ext: 2+ pitting edema B/L lower extremities Data : 06/23/19 03:50 06/23/19 03:50 A&P Assessment and plan (1) Congestive heart failure: Status: Acute Qualifiers: Heart failure chronicity: acute on chronic Heart failure type: unspecified Qualified Code(s): I50.9 - Heart failure, unspecified Code(s): I50.9 - Heart failure, unspecified (2) Hypoxia: Status: Acute Code(s): R09.02 - Hypoxemia (3) Acute exacerbation of chronic obstructive airways disease: Status: Acute Code(s): J44.1 - Chronic obstructive pulmonary disease with (acute) exacerbation (4) Lung mass: Status: Acute Code(s): R91.8 - Other nonspecific abnormal finding of lung field Additional A&P Information 1. Congestive heart failure : Currently net negative 700cc since yesterday, overall negative 2.6 L since admission Respiratory status improving, however desaturaing to 80s with minimal exertion. change iv to po lasix 40mg BID Will get home 02 eval, normally between 2-5lm 02 refused PT today due to fatigue, encouraged to ambulate with PT to improve functional capacity prior to discharge home. Patient has expressed desire not to pursue any further diagnostic testing for the new lung mass at this time. she understands that this may very well represent a malignant mass, however she states she is tired of multiple tests which are unlikely to change her overall quality of life. She will think about outpatient PET/CT and return for follow up if she decided to pursue this. 2. Acute on chronic COPD exacerbation: Improving, only intermittent Bipap requirement at this time Overnight pulse oximetry testing to assess if qualifies for home AVAPS home oxygen evaluation to assess current needs reduce steroids to 20mg po qd continue nebulization every 4h 3. Lung mass : possible malignancy. Per previous notes, On discussion with radiology hilar mass is too deep to try to reach by percutaneous biopsy. On review of imaging with our mill machinist there is also no nearby located airway which could allow for the mass to be reached safely by bronchoscopic biopsy. PET scan may allow for identification of any metastatic nodes or other lesions which may then be accessible by bronchoscopy. Patient not emenable to further testing at this present time. See above Outpatient f/up with pulmonology encouraged 4. Hyperthyroidism: Continue methimazole 5 mg daily, TSH low normal 5. Peripheral arterial disease with stenting left leg: aspirin, statin 6. Iron deficiency anemia history: Monitor hemoglobin. 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
--- NOTE | 2019-06-23 20:19 | PC.RESP ---
patient placed on overnight study for pox patient placed on room air at this time. patient increased to 3lpm after 2 min due to low o2 spo2.
[2019-06-23] MEDS: duloxetine 20 mg Capsule PO (20:20)
[2019-06-23] MEDS: atorvastatin 40 mg Tablet 20 MG PO (20:21)
[2019-06-23] MEDS: enoxaparin 40 mg/0.4 mL Syringe SUBCUT (20:21)
[2019-06-23 23:34] LABS: Iron 36 ug/dL (37-145); Percent Saturation 15.2 % (20-50); Total Iron Binding Capacity 236 mcg/dl; Unsaturated Iron Binding 200 ug/dL (112-347)
[2019-06-24] VITALS (59 sets, daily range): BP systolic 121–168; BP diastolic 58–86; PULSE 82–112; RESP 12–38; TEMP 36.7–36.9; O2SAT 90–99
[2019-06-24] MEDS: ipratropium-albuterol 3 mL Neb INHALATION ×3 (03:09→12:32)
[2019-06-24 05:09] LABS: Basophils % 0.1 %; Eosinophils # 0.1 10^3/uL (0.0-0.8); Eosinophils % 0.6 %; Hematocrit 33.6 % (37.0-47.0); Hemoglobin 10.4 g/dL (11.5-15.3); Lymphocytes # 3.4 10^3/uL (0.8-4.8); Lymphocytes % 29.6 %; Mean Corpuscular Hemoglobin 31.1 pg (28.0-34.0); Mean Corpuscular Volume 100.6 fL (81-99); Mean Platelet Volume 9.7 fL (7.4-10.4); Monocytes # 1.1 10^3/uL (0.2-0.9); Monocytes % 9.3 %; Neutrophils # 6.9 10^3/uL (1.8-7.7); Nucleated Red Blood Cells % 0 %; Platelet Count 301 10^3/cmm (130-400); Red Blood Count 3.34 10^6/uL (4.1-5.3); Red Cell Distribution Width 14.3 % (12.1-15.1); White Blood Count 11.5 10^3/uL (4.0-10.0)
[2019-06-24 05:35] LABS: Alanine Aminotransferase 30 U/L (0-33); Albumin Level 3.9 g/dL (3.5-5.2); Alkaline Phosphatase 55 IU/L (35-105); Anion Gap 16.8 (5-19); Aspartate Amino Transferase 21 U/L (0-32); Blood Urea Nitrogen 21 mg/dL (8-23); Calcium 9.3 mg/dL (8.5-10.5); Carbon Dioxide 32 mmol/L (22-29); Chloride 99 mmol/L (98-107); Glomerular Filtration Rate 61.9 mL/min (90-130); Glucose 106 mg/dL (65-115); Osmolality Calculated 295 mOsm/kg (285-295); Potassium 3.8 mmol/L (3.5-5.1); Sodium 144 mmol/L (136-145); Total Bilirubin 0.3 mg/dL (0.15-1.2); Total Protein 6.9 g/dL (6.6-8.7)
[2019-06-24 05:36] LABS: Chol HDL Ratio 2.72 mg/dL (0.0-4.40); Cholesterol 163 mg/dL (0-200); HDL Cholesterol 60 mg/dL (60-100); LDL Cholesterol Calculated 63 mg/dL (50-129); Triglycerides 199 mg/dL (0-150); VLDL Cholestrol Calculation 40 mg/dL (0-30)
[2019-06-24] MEDS: pregabalin 75 mg Capsule PO (08:22)
[2019-06-24] MEDS: methIMAzole 5 MG Tablet PO (08:22)
[2019-06-24] MEDS: predniSONE 20 mg Tablet PO (08:23)
[2019-06-24] MEDS: guaiFENesin 600 mg Tablet 1200 MG PO (08:23)
[2019-06-24] MEDS: aspirin 81 mg EC Tablet PO (08:23)
[2019-06-24] MEDS: metoprolol tartrate 25 mg Tablet PO ×2 (08:23→09:34)
[2019-06-24] MEDS: pantoprazole DR 40 mg Tablet PO (08:23)
[2019-06-24] MEDS: lisinopril 10 mg Tablet PO (08:23)
[2019-06-24] MEDS: FUROsemide 40 mg Tablet PO ×2 (08:23→09:34)
[2019-06-24] MEDS: acetaminophen 325 mg Tablet 650 MG PO (08:30)
--- NOTE | 2019-06-24 15:31 | P.DS_ITS ---
Discharge Providers Date of Admission: 06/20/19 20:50 Date of Discharge: June 24, 2019 Attending Provider at Admission: Kan Rubi MD Attending Provider at Discharge: Favio Dumont MD Diagnoses at Discharge Discharge Diagnosis (1) Congestive heart failure: Status: Acute Qualifiers: Heart failure chronicity: acute on chronic Heart failure type: unspecified Qualified Code(s): I50.9 - Heart failure, unspecified (2) Hypoxia: Status: Acute (3) Acute exacerbation of chronic obstructive airways disease: Status: Acute (4) Lung mass: Status: Acute Reason for Visit Reason for Visit: Reason For Visit: SOB Hospital Course Discharge Summary: 68 year old female with end-stage COPD, 5 L [id number] oxygen dependent, peripheral vascular disease, stress test in 2010 showed EF 57%, no history of [place] or coronary artery disease presented with chief complaint of choking sensation, found to be hypoxic 60% on her regular 5 L oxygen. She additionally c/o orthopnea, PND, bilateral leg swelling, limitation to her physical activity because of exertional shortness of breath worsening since march 2019. She was treated for acute CHF and COPD excerbation with iv lasix, iv steroids, nebulization. CTA chest was negative for PE but showed new left side lung mass raising concern for malignancy. Per previous notes review, On discussion with radiology hilar mass is too deep to try to reach by percutaneous biopsy. On review of imaging with our automatic tire tester there is also no nearby located airway which could allow for the mass to be reached safely by bronchoscopic biopsy. Ct abdomen/pelvis did not identify any evidence of metastatic disease PET scan may allow for identification of any metastatic nodes or other lesions which may then be accessible by bronchoscopy. Patient was initially not amenable to further testing at this present time, however on day of discharge stated she would like to return home for now and then pursue further testing as an outpatient. Stress test was also offered given that she has been experiencing exertion symptoms, however she stated that she had an adverse event during her previous test in 2010, so it was decided to defer for now and follow up with cardiology as an outpatient. Outpatient referral to pulmonology was also provided. Physical Exam Narrative: EXAM NARRATIVE: General: No acute distress, AO x3 HEENT: PERRLA, pupils bilaterally equal and reactive Chest: Normal vesicular breath sounds, no added sounds, equal good air entry bilaterally CVS: S1-S2 regular, no murmurs, no tachycardia, no gallops, no rubs Abdomen: Soft, nontender, no organomegaly, bowel sounds present Neuro: No focal deficits, no facial deformity, AO x3, power 5/5 in all limbs Discharge Data Data Completed and Pending: Completed Studies During Hospitalization Category Date Time Status CT abdomen pelvis w con* [id number] Rout ine Cat Scan 06/22/19 13:[address] angio chest PE protcl [id number] Urge nt Cat Scan 06/20/19 00:50 Completed XR chest 1V vidal ble [id number] Routine Exams 06/22/19 06:00 Completed XR chest 1V vidal ble [id number] Urgent Exams 06/19/19 23:21 Completed CV echo complete* [id number] Routine Ultrasound 06/20/19 01:36 Completed Labs from last 24 hours 06/24/19 06/24/19 06/24/19 04:54 04:54 04:54 WBC 11.5 H RBC 3.34 L Hgb 10.4 L Hct 33.6 L MCV 100.6 H MCH 31.1 MCHC 31.0 RDW 14.3 Plt Count 301 MPV 9.7 Neut % (Auto) 60.0 Lymph % (Auto) 29.6 [place] % (Auto) 9.3 Eos % (Auto) 0.6 Baso % (Auto) 0.1 Neut # (Auto) 6.9 Lymph # (Auto) 3.4 [place] # (Auto) 1.1 H Eos # (Auto) 0.1 Baso # (Auto) 0.0 Nucleated RBC % (a uto) 0 Nucleated RBCs # 0.0 Sodium 144 Potassium 3.8 Chloride 99 Carbon Dioxide 32 H Anion Gap 16.8 BUN 21 Creatinine 0.9 GFR Calculation 61.9 L Glucose 106 Calculated Osmolal ity 295 Calcium 9.3 Iron TIBC % Saturation Unsat Iron Binding Total Bilirubin 0.3 AST 21 ALT 30 Alkaline Phosphata se 55 Total Protein 6.9 Albumin 3.9 Globulin 3.0 Triglycerides 199 H Cholesterol 163 LDL Cholesterol, C alc 63 Total VLDL Cholest kimmie 40 H HDL Cholesterol 60 Cholesterol/HDL Ra alek 2.72 06/23/19 03:50 WBC RBC Hgb Hct MCV MCH MCHC RDW Plt Count MPV Neut % (Auto) Lymph % (Auto) [place] % (Auto) Eos % (Auto) Baso % (Auto) Neut # (Auto) Lymph # (Auto) [place] # (Auto) Eos # (Auto) Baso # (Auto) Nucleated RBC % (a uto) Nucleated RBCs # Sodium Potassium Chloride Carbon Dioxide Anion Gap BUN Creatinine GFR Calculation Glucose Calculated Osmolal ity Calcium Iron 36 L TIBC 236 % Saturation 15.2 L Unsat Iron Binding 200 Total Bilirubin AST ALT Alkaline Phosphata se Total Protein Albumin Globulin Triglycerides Cholesterol LDL Cholesterol, C alc Total VLDL Cholest kimmie HDL Cholesterol Cholesterol/HDL Ra alek Vitals: Last Vital Signs Temp 98.3 F 06/24/19 04:00 Pulse 88 06/24/19 12:32 Resp 16 06/24/19 12:32 BP 139/78 06/24/19 11:07 Pulse Ox 95 06/24/19 12:32 Discharge Plan Discharge Patient Disposition: Home Health Service Condition: Stable Prescriptions: New Medrol (Ambrosio) 4 mg tablets,dose pack See Rx Instructions .ROUTE .COMPLEX Qty: 21 RF: 0 furosemide 40 mg Tablet 80 mg PO BID@08,16 Qty: 120 RF: 0 Continued Cymbalta 20 mg Capsule,Delayed Release(Dr/Ec) 20 mg PO BEDTIME RF: 0 pregabalin 75 mg Capsule 75 mg PO BID RF: 0 Symbicort 160-4.5 mcg/actuation Hfa Aerosol Inhaler 2 puff INHALATION BID RF: 0 Vitamin D3 2,000 unit Tablet 2,000 unit PO DAILY RF: 0 potassium chloride 20 mEq Tablet Extended Release 20 meq PO BID RF: 0 Combivent Respimat 20-100 mcg/actuation Mist 1 puff INHALATION QID RF: 0 amlodipine 10 mg Tablet 10 mg PO BEDTIME RF: 0 benazepril 40 mg Tablet 40 mg PO DAILY RF: 0 fluticasone propionate 50 mcg/actuation [place],Suspension 2 spray INTRANASAL DAILY RF: 0 atorvastatin 20 mg Tablet 20 mg PO DAILY RF: 0 aspirin 325 mg Tablet 325 mg PO DAILY RF: 0 Iron (ferrous sulfate) 325 mg (65 mg iron) Tablet 325 mg PO DAILY RF: 0 metoprolol tartrate 50 mg Tablet 50 mg PO BID RF: 0 nitroglycerin 0.4 mg Tablet, Sublingual 0.4 mg SUBLINGUAL Q5M PRN (Reason: Chest Pain) RF: 0 Centrum Silver 0.4-300-250 mg-mcg-mcg Tablet 1 tab PO DAILY RF: 0 omeprazole 20 mg Tablet,Delayed Release (Dr/Ec) 20 mg PO BID RF: 0 Discontinued bumetanide 2 mg Tablet 2 mg PO BID RF: 0 cefuroxime axetil 500 mg Tablet 500 mg PO BID RF: 0 Discharge Orders: Discharge Order (Routine); Ordered 06/24/19 Ordered By: Favio Dumont Other Ambulatory Orders: DME: Oxygen (Order) Location: None Selected Ordered By: Favio Dumont DME: Walker (Order) Location: None Selected Ordered By: Favio Dumont Referrals: [facility] [Outside] [facility] ([facility]) [Outside] Harriet Driver, GRID OPERATOR [Family Provider] - (Please, call for an follow-up appointment with Neisha [facility] in 4 to 7 days. We will contact you to schedule an outpatient PET Scan.) Emory Washington MD [Physician] - 2 weeks ([facility] will contact you to schedule an follow-up with Dr. Washington in 2 weeks. If, you haven't heard from them by Tuesday. Please, call ) Windy Avery MD [Physician] - 1 month ([facility] will contact you to schedule an follow-up appointment with Dr. Avery in 1 month. If, you haven't heard from them by Tuesday. Please, call ) Discharge Diet: Cardiac Discharge Activity: Increase activity as tolerated Patient Instructions: Furosemide (By mouth), Methimazole (By mouth), Methylprednisolone (By mouth), COPD - Emphysema, Heart Failure (DC), CHF Stoplight, COPD Stoplight Activity Restrictions/Additional Instructions: PET scan within next 1 week for evaluation of lung mass. Follow-up with cardiology within the next 1 month for CAD work-up. Follow-up with Dr. Washington after PET scan for evaluation of lung mass. Discharge Date/Time: 06/24/19 17:45 Discharge Attestations Time Spent in Discharge Care*: greater than 30 min Specific Discharge Activities: Specific discharge activities: educating patient, educating and/or supporting family/caregiver, discussing with case fitter/social workers/dc planners, documenting/other paperwork and evaluating patient/reviewing data Status at Discharge: Cognitive status at discharge: cognitively intact , Beh avioral status at discharge: cooperative , Functional status at discharge: independent ambulation Overall status at discharge: patient is back to baseline Quality Metrics Clinical Quality Measures During this hospital stay, did patient experience: None Coding Level of Care Code Acute Literacy Consultant for Geraldog Fwd Diagnoses Congestive heart failure I50.9 Heart failure chronicity: acute on chronic Heart failure type: unspecified Hypoxia R09.02 Acute exacerbation of chronic obstructive airways disease J44.1 Lung mass R91.8
[2019-06-24] MEDS: FUROsemide 40 mg Tablet 80 MG PO (15:35)
--- NOTE | 2019-07-16 11:24 | PC.SOCIAL ---
Referral sent to [facility] for PET to be scheduled two weeks prior and on facesheet noted if PA is needing to be done by the ordering provider office to let me know and this would be initiated. No return call received until 07/12/2019 to notify me that patient has been scheduled for 07/25/2019 but that PA needed to be done by Dr Dumont office. Retrieved address for [facility] doing PET scan which is [address] [place] [address] [place] [address]. Tax ID: [id number]. . PET Skull to Mid Thigh Dx Lung Mass R91.8 Records were sent to [facility]: Case # [id number]. Phone for auth was . Call placed this am to verify if approved. Told dates of approval are 07/13/2019-08/27/2019. Spoke with clinic scheduling to see if they could check with patient about rescheduling appt but not schedule past the end date of PA 08/27/2019. Updated the PA Dept at [facility] of auth number that is generated for [facility] once approval which is: [id number] spoke with Fortunato. Spoke with Tor Amaya her Son and asked that he check with his Mom to see if the clinic as rescheduled the appt. He is aware that end date of PA is 08/27/2019 and if he can be done within this time that is best as long as we are not putting his Mom at risk. He was given the numbers to clinic with PA number as well. He had no further questions or concerns.
== END 2019-06-24 17:45 | disposition home health service (06) | DRG 291 ==
LOC: ER 06-20 00:26 → CSU 06-20 01:15
PROVIDERS: Internal Medicine; Student in an Organized Health Care Education/Training Program; Admitting Provider Internal Medicine; Emergency Provider Emergency Medicine; Family Provider Nurse Practitioner Family; Visit Provider Student in an Organized Health Care Education/Training Program
DX: I11.0 Hypertensive heart disease with heart failure (principal); J96.01 Acute respiratory failure with hypoxia; J43.9 Emphysema, unspecified; I50.9 Heart failure, unspecified; Z99.81 Dependence on supplemental oxygen; D50.9 Iron deficiency anemia, unspecified; E05.90 Thyrotoxicosis, unspecified without thyrotoxic crisis or storm; R91.8 Other nonspecific abnormal finding of lung field; Z79.82 Long term (current) use of aspirin; I73.9 Peripheral vascular disease, unspecified; K21.9 Gastro-esophageal reflux disease without esophagitis; E03.9 Hypothyroidism, unspecified; Z88.8 Allergy status to other drugs, medicaments and biological substances; Z79.899 Other long term (current) drug therapy; Z79.51 Long term (current) use of inhaled steroids; E78.5 Hyperlipidemia, unspecified
CPT/HCPCS: 12345; 36415; 36600; 71045; 71275; 74177; 80048; 80053; 80061; 82805; 83540; 83550; 83735; 83880; 84443; 84484; 85025; 87804; 93005; 93306; 94640; 94660; 96372; 96374; 96375; 97110; 97116; 97162; 99284; G0378; J0456; J0696; J1650; J1940; J2930; J3475; J7050; J7512; J7611; Q9967

== ENCOUNTER 2020-04-07 09:29 | Emergency (ER) | payer MEDICARE, MEDICAID, SELFPAY ==
[2020-04-07 09:39] VITALS: BP 159/66; PULSE 82; RESP 26; TEMP 36.2; O2SAT 94; BMI 34.0
--- NOTE | 2020-04-07 10:04 | W.ED.CHESTPA ---
HPI - Chest Pain General: Chief Complaint: Chest Pain Stated Complaint: Chest/Back Pain/Lung Tumor related Time Seen by Provider: 04/07/20 09:45 History of Present Illness: HPI narrative: 69-year-old female presents emergency room with complaint of chest pain. She has a history of lung CA. last several days she has been increasing pain and difficulty breathing. When I came to the room her oxygen had been off her time and she was satting in the mid 80s when placed back on 4 L of nasal cannula she went back to 100% on oxygen saturation. They had difficulty biopsying the lesion last spring was first found and she ultimately decided to forego any type of treatment radiation was offered to her as a palliative way to shrink the tumor she declined she is interested only at this point in pain relief and improvement of her breathing symptoms but not any other forms of treatment intervention. MD complaint: chest pain Pertinent past history: other (Lung mass) Onset (ago): day(s) Timing of current episode: episodic and increasing Prior episodes: Yes Pain location: right chest Severity: severe Quality: sharp Relieving factors: rest Exacerbating factors: inspiration and movement Associated symptoms: Reports dyspnea, leg edema and nausea; Deny abdominal pain, diaphoresis, fever(s), palpitations, sense of impending doom, syncope or vomiting Treatment prior to arrival: none Review of Systems Const: Denies: fever(s) or diaphoresis ENMT: Denies: throat pain, ear or mastoid pain, nasal discharge or nasal congestion Card: Denies: palpitations or syncope Resp: Reports: dyspnea GI: Reports: nausea; Denies: abdominal pain or vomiting : Denies: flank pain, difficulty voiding, dysuria, urinary frequency or urinary urgency Skin/Breast: Denies: rash or pruritus PFSH ED PFSH: Medical History COPD (chronic obstructive pulmonary disease) Dyslipidemia End stage COPD GERD (gastroesophageal reflux disease) Hypertension Hypothyroidism Iron deficiency anemia Oxygen dependent Peripheral vascular disease Stenosis of lower extremity artery Status post stent in left lower extremity Surgical History Hx of tonsillectomy Family History Mother CAD (coronary artery disease) Social History Smoking and tobacco status: former smoker Quit status (tobacco): has quit using tobacco Year quit tobacco: 2011 - 1.5 PPD x 45 Years Alcohol intake: never Lives independently: Yes Household members: none Housing: House Current occupational status: disabled History of recent travel: No Current gender identity: Female Physical Exam Const: COMMON NORMALS: no acute distress GENERAL APPEARANCE: cooperative and comfortable ORIENTATION/CONSCIOUSNESS: Yes awake, Yes oriented to person, Yes oriented to place and Yes oriented to time HENMT: COMMON NORMALS: normocephalic, atraumatic and hearing grossly normal bilaterally HEAD & SCALP: normocephalic and atraumatic Neck/C-Spine: COMMON NORMALS: full ROM, no lymphadenopathy, supple and no JVD Resp: COMMON NORMALS: normal respiratory effort, No retractions, No use of accessory muscles and clear to auscultation bilaterally AUSCULTATION: clear to auscultation bilaterally Cardio: COMMON NORMALS: no JVD, regular rate, regular rhythm and No murmurs present (Cardio) RATE: regular rate RHYTHM: regular rhythm GI: COMMON NORMALS: Soft to palpation and No hepatosplenomegaly present AUSCULTATION: Yes normoactive bowel sounds PALPATION: Yes Soft to palpation, No Tenderness to palpation present (GI), No Guarding due to palpation present (GI) and Yes No hepatosplenomegaly present Extremity: COMMON NORMALS: normal to inspection, capillary refill normal, no clubbing, cyanosis or edema, no calf tenderness and no pedal edema Neuro: SENSORIUM/ORIENTATION: Yes oriented to person, Yes oriented to place and Yes oriented to time Skin: COMMON NORMALS: no rashes or lesions noted GENERAL SKIN EXAM: no rashes or lesions noted Course Vital Signs: Vital signs: Vital Signs Temperature 97.2 F L 04/07/20 09:39 Pulse Rate 70 04/07/20 12:21 Respiratory Rate 18 04/07/20 12:21 Blood Pressure 128/80 04/07/20 12:21 Pulse Oximetry 97 04/07/20 12:21 MDM - Chest Pain MDM Narrative: Medical decision making narrative: Her breathing is stable with the oxygen in place her pain is controlled after medications given here will discharge home with hydrocodone follow-up with primary care doctor return to the ER if worsens. Lab Data: Labs: Lab Results 04/07/20 04/07/20 04/07/20 Range/Units 10:00 10:00 10:00 WBC 8.6 (4.0-10.0) 10^3/ uL RBC 3.26 L (4.1-5.3) 10^6/u L Hgb 10.1 L (11.5-15.3) g/dL Hct 33.0 L (37.0-47.0) % MCV 101.2 H (81-99) fL MCH 31.0 (28.0-34.0) pg MCHC 30.6 (30.0-36.0) g/dL RDW 13.0 (12.1-15.1) % Plt Count 308 (130-400) 10^3/c mm MPV 10.2 (7.4-10.4) fL Neut % (Auto) 75.3 % Lymph % (Auto) 15.5 % [place] % (Auto) 7.6 % Eos % (Auto) 0.8 % Baso % (Auto) 0.3 % Neut # (Auto) 6.46 (1.8-7.7) 10^3/u L Lymph # (Auto) 1.3 (0.8-4.8) 10^3/u L [place] # (Auto) 0.7 (0.2-0.9) 10^3/u L Eos # (Auto) 0.1 (0.0-0.8) 10^3/u L Baso # (Auto) 0.0 (0.0-0.1) 10^3/u L Nucleated RBC % (a uto) 0 % Nucleated RBCs # 0.0 /100WBC PT 13.00 (12.1-14.9) SECO NDS INR 0.96 (0.8-1.2) APTT 27.1 (23.9-36.7) SECO NDS Specimen Type Sample Site ABG pH (7.35-7.45) ABG pCO2 (35-45) mmHg ABG pO2 (80.0-100.0) mmH g ABG HCO3 (22-26) mmol/L ABG O2 Saturation ABG Base Excess (-2.0-2.0) mmol/ L Sergo Test A-a O2 Gradient (5-10) mmHg Hematocrit (37-47) % Hgb O2 Saturation (95-100) % Carboxyhemoglobin (0.4-20.1) %THgb Methemoglobin (0.4-1.5) % Total Hemoglobin (12-16) g/dL Ionized Calcium (1.1-1.4) mmol/L O2 Delivery Device O2 Liters/Min % FiO2 % [employer]ession[employer] ID Sodium 139 (136-145) mmol/L Potassium 5.1 (3.5-5.1) mmol/L Chloride 101 (98-107) mmol/L Carbon Dioxide 29 (22-29) mmol/L Anion Gap 14.1 (5-19) BUN 19 (8-23) mg/dL Creatinine 1.0 H (0.5-0.9) mg/dL GFR Calculation Not Reportable Glucose 97 (65-115) mg/dL Calculated Osmolal ity 290 (285-295) mOsm/k g Calcium 9.4 (8.5-10.5) mg/dL Total Bilirubin 0.2 (0.15-1.2) mg/dL AST 14 (0-32) U/L ALT 12 (0-33) U/L Alkaline Phosphata se 84 (35-105) IU/L Total Protein 7.2 (6.6-8.7) g/dL Albumin 4.2 (3.5-5.2) g/dL Globulin 3.0 (1.3-4.6) g/dL //20 Range/Units 10:16 WBC (4.0-10.0) 10^3/ uL RBC (4.1-5.3) 10^6/u L Hgb (11.5-15.3) g/dL Hct (37.0-47.0) % MCV (81-99) fL MCH (28.0-34.0) pg MCHC (30.0-36.0) g/dL RDW (12.1-15.1) % Plt Count (130-400) 10^3/c mm MPV (7.4-10.4) fL Neut % (Auto) % Lymph % (Auto) % [place] % (Auto) % Eos % (Auto) % Baso % (Auto) % Neut # (Auto) (1.8-7.7) 10^3/u L Lymph # (Auto) (0.8-4.8) 10^3/u L [place] # (Auto) (0.2-0.9) 10^3/u L Eos # (Auto) (0.0-0.8) 10^3/u L Baso # (Auto) (0.0-0.1) 10^3/u L Nucleated RBC % (a uto) % Nucleated RBCs # /100WBC PT (12.1-14.9) SECO NDS INR (0.8-1.2) APTT (23.9-36.7) SECO NDS Specimen Type Arterial Sample Site Radial, right ABG pH 7.39 (7.35-7.45) ABG pCO2 44.9 (35-45) mmHg ABG pO2 194.0 H (80.0-100.0) mmH g ABG HCO3 27.0 H (22-26) mmol/L ABG O2 Saturation 99.8 ABG Base Excess 1.7 (-2.0-2.0) mmol/ L Sergo Test Pos A-a O2 Gradient 8.5 (5-10) mmHg Hematocrit 31.9 L (37-47) % Hgb O2 Saturation 98.3 (95-100) % Carboxyhemoglobin 0.6 (0.4-20.1) %THgb Methemoglobin 0.9 (0.4-1.5) % Total Hemoglobin 10.4 L (12-16) g/dL Ionized Calcium 1.2 (1.1-1.4) mmol/L O2 Delivery Device Nc O2 Liters/Min 6.0 % FiO2 44.0 % [employer] Professionals ID Gd Sodium 140.0 (136-145) mmol/L Potassium 4.8 (3.5-5.1) mmol/L Chloride (98-107) mmol/L Carbon Dioxide (22-29) mmol/L Anion Gap (5-19) BUN (8-23) mg/dL Creatinine (0.5-0.9) mg/dL GFR Calculation Glucose 125.0 H (65-115) mg/dL Calculated Osmolal ity (285-295) mOsm/k g Calcium (8.5-10.5) mg/dL Total Bilirubin (0.15-1.2) mg/dL AST (0-32) U/L ALT (0-33) U/L Alkaline Phosphata se (35-105) IU/L Total Protein (6.6-8.7) g/dL Albumin (3.5-5.2) g/dL Globulin (1.3-4.6) g/dL Discharge Plan Discharge Patient Disposition: Home Clinical Impression: Lung mass, COPD (chronic obstructive pulmonary disease) Condition: Stable Prescriptions: New hydrocodone-acetaminophen 5-325 mg tablet 1 tab PO Q6H PRN (Reason: pain) Qty: 30 RF: 0 No Action ipratropium-albuterol 0.5 mg-3 mg(2.5 mg base)/3 mL solution for nebulization 3 ml INHALATION QID@429, PRN (Reason: Shortness Of Breath) RF: 0 revefenacin 175 mcg/3 mL solution for nebulization 175 mcg INHALATION DAILY 90 Days Qty: 90 RF: 3 Perforomist 20 mcg/2 mL solution for nebulization 2 ml INHALATION Q12H 90 Days Qty: 120 RF: 3 guaifenesin [Mucinex] 600 mg tablet extended release 12hr 600 mg PO BID@ RF: 0 Combivent Respimat 20-100 mcg/actuation mist 1 puff INHALATION QID@,, RF: 0 budesonide-formoterol [Symbicort] 160-4.5 mcg/actuation HFA aerosol inhaler 2 puff INHALATION BID@429 RF: 0 acetaminophen 650 mg Tablet Extended Release 650 mg PO Q8H PRN (Reason: Pain) RF: 0 Vitamin C 1 mg PO DAILY@429 RF: 0 zinc 1 tab PO DAILY@429 RF: 0 furosemide 40 mg tablet 80 mg PO BID@ RF: 0 prednisone 5 mg tablet 5 mg PO DAILY@429 RF: 0 Pulmicort 0.5 mg/2 mL suspension for nebulization 0.5 mg INHALATION BID@ RF: 0 duloxetine [Cymbalta] 20 mg Capsule,Delayed Release(Dr/Ec) 20 mg PO BEDTIME@1999 RF: 0 pregabalin 75 mg Capsule 75 mg PO BID@ RF: 0 cholecalciferol (vitamin D3) [Vitamin D3] 2,000 unit Tablet 2,000 unit PO DAILY@429 RF: 0 potassium chloride 20 mEq Tablet Extended Release 20 meq PO BID@ RF: 0 amlodipine 10 mg Tablet 10 mg PO BEDTIME@1999 RF: 0 benazepril 40 mg Tablet 40 mg PO DAILY@429 RF: 0 fluticasone propionate 50 mcg/actuation [place],Suspension 2 spray INTRANASAL DAILY@429 RF: 0 atorvastatin 20 mg Tablet 20 mg PO DAILY@429 RF: 0 aspirin 325 mg Tablet 325 mg PO DAILY@429 RF: 0 ferrous sulfate [Iron (ferrous sulfate)] 325 mg (65 mg iron) Tablet 325 mg PO DAILY@429 RF: 0 metoprolol tartrate 50 mg Tablet 50 mg PO BID@ RF: 0 nitroglycerin 0.4 mg Tablet, Sublingual 0.4 mg SUBLINGUAL Q5M PRN (Reason: Chest Pain) RF: 0 Centrum Silver 0.4-300-250 mg-mcg-mcg Tablet 1 tab PO DAILY@429 RF: 0 omeprazole 20 mg Tablet,Delayed Release (Dr/Ec) 20 mg PO BID@ RF: 0 Discharge Orders: Discharge ED (Routine); Ordered 04/07/20 Ordered By: Horace Harper Referrals: Harriet Driver NP [Primary Care Provider] - Discharge Diet: Usual diet Discharge Activity: Increase activity as tolerated Activity Restrictions/Additional Instructions: Case management will call to make arrangements for you to have an appointment with pulmonology. Turn to the emergency room if pain becomes uncontrollable. Coding Level of Care Code ED Street Light Cleaner for Neo Anderson
--- NOTE | 2020-04-07 10:11 | XR_ITS ---
WS: [id number] Exam: XR chest 1V portable [id number] Date/Time of Exam: 04/07/2020 10:14 AM Reason For Exam: dyspnea/cough Comparison 06/22/2019. The lungs are fully expanded. No acute infiltrates are seen. No pleural effusions. Probable hiatal he rnia. Normal cardiomediastinal structures. Bony elements are intact. XR/XR chest 1V portable [id number] IMPRESSION: 1. No acute cardiopulmonary finding. Probable hiatal hernia.
[2020-04-07 10:33] LABS: ABG PCO2 44.9 mmHg (35-45); ABG PH Result 7.39 (7.35-7.45); Alveolar-Arterial Oxygen Gradi 8.5 mmHg (5-10); Arterial Blood Gas Hematocrit 31.9 % (37-47); Base Excess ABG 1.7 mmol/L (-2.0-2.0); Blood Gas Allen Test Pos; Blood Gas Operator Identificat GD; Blood Gas Sample Site Radial, right; Blood Gas Sample Type Arterial; Carboxyhemoglobin 0.6 %THgb (0.4-20.1); HGB O2 Sat 98.3 % (95-100); Ionized Calcium Level - ABG 1.2 mmol/L (1.1-1.4); Methemoglobin 0.9 % (0.4-1.5); Oxygen Device NC; Oxygen Saturation ABG 99.8; Potassium Level - ABG 4.8 mmol/L (3.5-5.0); Total Hemoglobin 10.4 g/dL (12-16)
[2020-04-07 10:34] VITALS: BP 168/68; PULSE 70; RESP 18; O2SAT 100
[2020-04-07 10:47] VITALS: RESP 16
[2020-04-07] MEDS: morphine 4 mg/mL SDV 1 mL IVP (10:47)
[2020-04-07] MEDS: ondansetron 2 mg/ML SDV 2 mL 4 MG IVP (10:47)
[2020-04-07 11:24] LABS: Basophils % 0.3 %; Eosinophils # 0.1 10^3/uL (0.0-0.8); Eosinophils % 0.8 %; Hemoglobin 10.1 g/dL (11.5-15.3); Lymphocytes # 1.3 10^3/uL (0.8-4.8); Lymphocytes % 15.5 %; Mean Corpuscular HGB Conc 30.6 g/dL (30.0-36.0); Mean Corpuscular Volume 101.2 fL (81-99); Mean Platelet Volume 10.2 fL (7.4-10.4); Monocytes # 0.7 10^3/uL (0.2-0.9); Monocytes % 7.6 %; Neutrophils # 6.46 10^3/uL (1.8-7.7); Neutrophils % 75.3 %; Nucleated Red Blood Cells % 0 %; Platelet Count 308 10^3/cmm (130-400); Red Blood Count 3.26 10^6/uL (4.1-5.3); White Blood Count 8.6 10^3/uL (4.0-10.0)
[2020-04-07 11:27] LABS: INR 0.96 (0.8-1.2)
[2020-04-07 11:28] LABS: Partial Thromboplastin Time 27.1 SECONDS (23.9-36.7)
[2020-04-07 11:33] LABS: Alanine Aminotransferase 12 U/L (0-33); Albumin Level 4.2 g/dL (3.5-5.2); Alkaline Phosphatase 84 IU/L (35-105); Anion Gap 14.1 (5-19); Aspartate Amino Transferase 14 U/L (0-32); Blood Urea Nitrogen 19 mg/dL (8-23); Calcium 9.4 mg/dL (8.5-10.5); Carbon Dioxide 29 mmol/L (22-29); Chloride 101 mmol/L (98-107); Glucose 97 mg/dL (65-115); Osmolality Calculated 290 mOsm/kg (285-295); Potassium 5.1 mmol/L (3.5-5.1); Sodium 139 mmol/L (136-145); Total Bilirubin 0.2 mg/dL (0.15-1.2); Total Protein 7.2 g/dL (6.6-8.7)
[2020-04-07 12:21] VITALS: BP 128/80; PULSE 70; RESP 18; O2SAT 97
--- NOTE | 2020-04-08 11:37 | DCPLANNER ---
assistant purchasing manager had message to schedule a follow up appointment for patient with pulmonology. assistant purchasing manager called [facility], spoke with Renate, a follow up appointment was scheduled for Thursday, April 16, 2020 at 1:[address] Washington. assistant purchasing manager called patient, spoke with patients son, gave the son the appointment information.
== END 2020-04-07 12:22 | disposition home or self-care (01) ==
PROVIDERS: Emergency Provider Family Medicine; PCP Nurse Practitioner Family
DX: J44.9 Chronic obstructive pulmonary disease, unspecified (principal); R91.8 Other nonspecific abnormal finding of lung field; Z79.82 Long term (current) use of aspirin; E78.5 Hyperlipidemia, unspecified; I10 Essential (primary) hypertension; Z99.81 Dependence on supplemental oxygen; Z87.891 Personal history of nicotine dependence
CPT/HCPCS: 12345; 36600; 71045; 80051; 80053; 82330; 82805; 83605; 85025; 85610; 85730; 96374; 96375; 99282; 99283; J2270; J2405